=== PATIENT | male | born 1955 | race Two or more races ===

== ENCOUNTER 2017-08-23 12:41 | Inpatient (IN) | payer OTHER ==
[~2017-08-23] VITALS: Ht 165.1 cm; Wt 74.8 kg
--- NOTE | 2017-08-23 12:45 | NUR ---
PRESENTS TO ER C/O LEFT FACIAL DROOP, SLURRED SPEACH SINCE YESTERDAY AT 0830 AM. PATIENT IS A/OX 4. BREATHING EVEN AND UNLABORED. NO OTHER NEURO DEFICITS. NAD, VITALS STABLE. SAFETY AND COMFORT MEASURES IN PLACE. AWAITING MD ORDERS.
[2017-08-23] MEDS ORDERED: [UNRECOGNIZED DRUG - REMARK] (12:46)
[2017-08-23 12:57] LABS: BASOPHILS % (AUTO) 0.5 % (0.0-2.0); EOSINOPHILS # (AUTO) 0.1 /CMM (0.0-0.7); EOSINOPHILS % (AUTO) 1.4 % (0.0-6.0); HEMATOCRIT 47 % (39-51); HEMOGLOBIN 16.7 g/dL (13.5-17.5); LYMPHOCYTES # (AUTO) 1.4 /CMM (0.8-4.8); LYMPHOCYTES % (AUTO) 24.6 % (20.0-44.0); MEAN CORPUSCULAR HEMOGLOBIN 32 PG (26.0-33.0); MEAN CORPUSCULAR HGB CONC 36 g/dl (31.0-36.0); MEAN CORPUSCULAR VOLUME 89 fL (80-96); MONOCYTES # (AUTO) 0.3 /CMM (0.1-1.30); NEUTROPHILS # (AUTO) 3.9 /CMM (1.8-8.9); NEUTROPHILS % (AUTO) 68.5 % (43.0-81.0); PLATELET COUNT (AUTO) 216 /CMM (150-450); RDW COEFFICIENT OF VARIATION 12.3 (11.5-15.0); WHITE BLOOD COUNT (AUTO) 5.8 K/uL (4.3-11.0)
--- NOTE | 2017-08-23 12:57 | NUR ---
NEW IV STARTED ON RAC, 20G. BLOOD DRAWN AND SENT TO LAB.
--- NOTE | 2017-08-23 13:00 | NUR ---
PATIENT TAKEN TO CT VIA STRETCHER.
[2017-08-23 13:07] LABS: CARBON DIOXIDE 24 mmol/L (21-32); CHLORIDE 104 mmol/L (98-107); CREATININE 0.8 mg/dL (0.6-1.3); GLUCOSE 108 mg/dL (74-106); POTASSIUM 3.9 mmol/L (3.5-5.1); SODIUM SERUM 138 mmol/L (136-145); UREA NITROGEN, BLOOD 19 mg/dL (7-18)
--- NOTE | 2017-08-23 13:10 | NUR ---
PATIENT RETURNED FROM CT IN STABLE CONDITION.
[2017-08-23 13:11] LABS: INR 0.91 (0.85-1.15)
--- NOTE | 2017-08-23 13:11 | NUR ---
CALLED NURSING BOILERMAKER MECHANIC REQUESTING A BED.
[2017-08-23 13:13] LABS: ALANINE AMINOTRANSFERASE 26 U/L (12-78); ALBUMIN 4.2 g/dL (3.4-5.0); ALKALINE PHOSPHATASE 65 U/L (46-116); ASPARTATE AMINOTRANSFERASE 16 U/L (15-37); BILIRUBIN,DIRECT 0.2 mg/dL (0.0-0.2); BILIRUBIN,TOTAL 0.6 mg/dL (0.2-1.0); TOTAL PROTEIN, SERUM 7.8 g/dL (6.4-8.2)
[2017-08-23 13:15] LABS: TROPONIN I < 0.017 ng/mL (0.00-0.056)
--- NOTE | 2017-08-23 13:28 | NUR ---
CALLED [employer] RESIDENT SERVICE COORDINATOR WAS PAGED.
[2017-08-23 13:33] LABS: CHOLESTEROL 172 mg/dL (<200); HDL CHOLESTEROL 34 mg/dL (40-60); LDL 121 mg/dL (0-99); TRIGLYCERIDES 114 mg/dL (30-150)
[2017-08-23] MEDS ORDERED: ASPIRIN 325 MG TABLET PO ONE (14:00)
[2017-08-23] MEDS ORDERED: METO25TA3 PO (14:04)
[2017-08-23] MEDS ORDERED: LOSA50TA3 PO (14:04)
[2017-08-23] MEDS ORDERED: ASPI-1169 PO (14:04)
[2017-08-23] MEDS ORDERED: ATOR40TA PO (14:04)
[2017-08-23] MEDS ORDERED: ALLO100T PO (14:04)
[2017-08-23] MEDS ORDERED: ASPIRIN 325 MG TABLET ONE (14:06)
--- NOTE | 2017-08-23 14:16 | NUR ---
REPORT GIVEN TO PABLO BRIONES FOR MILTON UPON ADMISSION.
--- NOTE | 2017-08-23 14:49 | NUR ---
PATIENT TRANSPORTED TO [facility] VIA ACLS PROTOCOL. RNPABLO TO PROVIDE IMLTON.
[2017-08-23] MEDS ORDERED: ENOXAPARIN SODIUM 40 MG/0.4 ML DISP.SYRIN SQ SCH (15:00)
[2017-08-23] MEDS ORDERED: LOSARTAN POTASSIUM 50 MG TABLET PO SCH (15:00)
[2017-08-23] MEDS ORDERED: METOPROLOL SUCCINATE 25 MG TAB.SR.24H PO SCH (15:00)
--- NOTE | 2017-08-23 15:17 | NUR ---
TEXTED DR. PINEDA FOR MRI APPROVAL.
--- NOTE | 2017-08-23 15:35 | NUR ---
ENDODONTICS DENTIST NOTES RECEIVED PT FROM ER. V/S SIGNS CHECKED.
[2017-08-23] MEDS: BLOOD SUGAR DIAGNOSTIC 1 EACH STRIP IN SCH ×3 (15:46→21:34)
[2017-08-23] MEDS: ATORVASTATIN 40 MG TABLET PO SCH (15:59)
[2017-08-23 16:03] VITALS: BP 126/78
[2017-08-23] MEDS ORDERED: BLOOD SUGAR DIAGNOSTIC 1 EACH STRIP IN SCH (18:00)
--- NOTE | 2017-08-23 18:26 | NUR ---
SEPTIC TANK SETTER NOTES NO ACUTE CHANGES NOTED DURING THE SHIFT. DUE MEDS GIVEN. HEAD OF BED ELEVATED.SIDE RAILS UP. CALL LIGHT PLACED WITHIN REACH. WILL ENDORSE TO THE PM NURSE FOR MILTON.
--- NOTE | 2017-08-23 19:25 | NUR ---
TELE/RN NOTES RECEIVED PT. SITTING UP IN BED. PT. IS AWAKE, ALERT AND ORIENTED X4. BREATHING EVEN AND UNLABORED ON ROOM AIR. NO SOB, RESPIRATORY DISTRESS OR COMPLAINTS OF PAIN NOTED AT THIS TIME. PT. WITH EXTERNAL RISK MANAGEMENT SPECIALIST PRESENT AND INTACT. CURRENT RHYTHM = SINUS RHYTHM HR 85. PT. WITH RIGHT AC 20 GAUGE IV SALINE LOCK PRESENT AND INTACT. NEURO CHECK PERFORMED. WILL CONTINUE TO PERFORM FREQUENT NEUROCHECKS ORDERED. PT. WITH FAMILY MEMBERS PRESENT AT BEDSIDE. BED LOCKED AND IN LOWEST POSITION, SIDE RAILS UP X2, CALL LIGHT WITHIN REACH, WILL CONTINUE TO MONITOR.
[2017-08-23 20:00] VITALS: BP 108/75
--- NOTE | 2017-08-23 20:05 | NUR ---
TELE/RN NOTES CHARGE NURSE OSIEL RECEIVED CALL FROM DR. GOLDSMITH PT. MRI RESULTED WITH ACUTE STROKE. CALLED AND NOTIFIED [facility] SALES HOST DR. JONES PT. MRI RESULTED. MRI RESULTS READ: SMALL ACUTE INFARCT IN THE POSTERIOR LIMB OF THE RIGHT INTERNAL CAPSULE. 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 SMALL CHRONIC INFARCTS ARE SEEN IN THE RIGHT CEREBELLUM. PT. RECEIVED ASPIRIN 325 MG, LOVENOX 40MG AND LIPITOR 40MG IN THE ER. PER DR. JONES OK. NO NEW ORDERS AT THIS TIME. WILL CONTINUE FREQUENT NEURO CHECKS. WILL CONTINUE TO MONITOR.
[2017-08-24] VITALS: BP 108/73
[2017-08-24 04:00] VITALS: BP 105/65
--- NOTE | 2017-08-24 06:05 | NUR ---
TELE/RN NOTES PT. IS LYING IN BED RESTING. BREATHING EVEN AND UNLABORED ON ROOM AIR. NO SOB, RESPIRATORY DISTRESS OR COMPLAINTS OF PAIN NOTED AT THIS TIME. PT. WITH EXTERNAL MANAGER LOGISTIC PRESENT AND INTACT. CURRENT RHYTHM = SINUS RHYTHM HR 84. PT. WITH RIGHT AC 20 GAUGE IV SALINE LOCK PRESENT AND INTACT. FREQUENT NEURO CHECKS PERFORMED. ALL PT. NEEDS MET. BED LOCKED AND IN LOWEST POSITION, SIDE RAILS UP X2, CALL LIGHT WITHIN REACH, WILL ENDORSE TO DAYSHIFT NURSE FOR CONTINUITY OF CARE.
[2017-08-24 06:15] VITALS: BP 105/65
[2017-08-24] MEDS: BLOOD SUGAR DIAGNOSTIC 1 EACH STRIP IN SCH ×2 (06:48→11:58)
[2017-08-24 07:05] LABS: CALCIUM, SERUM 8.8 mg/dL (8.5-10.1); CREATININE 0.8 mg/dL (0.6-1.3); POTASSIUM 4.3 mmol/L (3.5-5.1)
--- NOTE | 2017-08-24 07:05 | NUR ---
RN INITIAL NOTE PATIENT RECEIVED IN BED SLEEPING. EASILY AROUSED. NO S/S OF PAIN OR DISCOMFORT. SINUS TACH ON TELE MONITOR WITH PVC'S. RESPIRATIONS ARE EVEN AND UNLABORED. SATING WELL ON ROOM AIR. SKIN IS WARM AND DRY TO TOUCH. IV SITE FLUSHED, PATENT. SAFETY PRECAUTIONS IMPLEMENTED: BED IN LOCKED, LOW POSITION WITH TWO SIDE RAILS UP. CALL LIGHT AND BELONGINGS WITHIN EASY REACH. WILL CONTINUE TO MONITOR.
[2017-08-24 07:13] LABS: BASOPHILS % (AUTO) 0.5 % (0.0-2.0); EOSINOPHILS # (AUTO) 0.2 /CMM (0.0-0.7); EOSINOPHILS % (AUTO) 2.6 % (0.0-6.0); HEMATOCRIT 45 % (39-51); HEMOGLOBIN 15.4 g/dL (13.5-17.5); LYMPHOCYTES # (AUTO) 1.9 /CMM (0.8-4.8); LYMPHOCYTES % (AUTO) 29.2 % (20.0-44.0); MEAN CORPUSCULAR HEMOGLOBIN 31 PG (26.0-33.0); MEAN CORPUSCULAR HGB CONC 34 g/dl (31.0-36.0); MEAN CORPUSCULAR VOLUME 90 fL (80-96); MONOCYTES # (AUTO) 0.4 /CMM (0.1-1.30); MONOCYTES % (AUTO) 6.4 % (2.0-12.0); NEUTROPHILS # (AUTO) 3.9 /CMM (1.8-8.9); NEUTROPHILS % (AUTO) 61.3 % (43.0-81.0); PLATELET COUNT (AUTO) 188 /CMM (150-450); RDW COEFFICIENT OF VARIATION 13.3 (11.5-15.0); RED BLOOD CELL COUNT(AUTO) 4.99 MIL/uL (4.5-6.0); WHITE BLOOD COUNT (AUTO) 6.4 K/uL (4.3-11.0)
[2017-08-24 07:15] LABS: INR 0.93 (0.87-1.13)
[2017-08-24 08:00] VITALS: BP 122/79
[2017-08-24] MEDS: ATORVASTATIN 40 MG TABLET PO SCH (08:09)
[2017-08-24] MEDS ORDERED: ASPIRIN EC 325 MG TABLET.DR PO SCH (09:00)
--- NOTE | 2017-08-24 11:53 | NUR ---
Electrical Estimator Consult was requested by Dr. Walden regarding a stroke. Pt is a 62 year old Japanese male who was admitted to [facility] for evaluation of dysphagia and facial asymmetry. SW met with pt. at his bedside. Pts friend and daughter were at bedside. Patient is orientedx4. Pt currently resides at his [address] [place], [place] [id number]. The pt.s emergency contact is his daughter Odalis ([phone]). Pt reports no use of drugs and alcohol. Pt reports that he smokes 10 cigarettes a day but is going to quit now due to stroke. Pt denies any suicidal or homicidal ideation. Patient denies any visual or auditory hallucinations. SW offered resources and referrals and pt. and his family declined. Pt reported that he was well and did not need any resources. SW provided emotional support and evaluated pt.s support system which includes his , his children, and friends. DRAKE spoke with ANSELMO Pizarro in regards to pt. declining resources and pt.s disposition. Plan: Pt will be going back to his home ([address] [place] [id number]) with his family. Addendum: 08/24/17 at 1746 by DEISY JUAN DRAKE provided family with the Stroke Help [id number] ([phone]) if the pt. needed additional support.
[2017-08-24 12:00] VITALS: BP 124/81
[2017-08-24] MEDS ORDERED: CLOPIDOGREL BISULFATE 75 MG TABLET PO ONE (12:30)
--- NOTE | 2017-08-24 15:42 | NUR ---
RN CLOSING NOTE PATIENT DISCHARGED HOME. LEFT WITH DAUGHTER. IV SITE AND ID BAND REMOVED. PAPERWORK COMPLETED AND SIGNED.
[2017-08-25] MEDS ORDERED: CLOPIDOGREL BISULFATE 75 MG TABLET PO SCH (09:00)
== END 2017-08-24 15:48 | disposition home or self-care (01) | DRG 45 ==
LOC: ER 12:43 → TELE1 13:51
PROVIDERS: ADMIT Internal Medicine; ATTEND Internal Medicine
DX: I63.9 Cerebral infarction, unspecified (principal); R13.10 Dysphagia, unspecified; I10 Essential (primary) hypertension; E78.5 Hyperlipidemia, unspecified; I25.10 Atherosclerotic heart disease of native coronary artery without angina pectoris; R29.810 Facial weakness; I69.322 Dysarthria following cerebral infarction
CPT/HCPCS: 36415; 70450-TC; 70551-TC; 71045-TC; 80048-TC; 80061-TC; 80076-TC; 82962-TC; 84443-TC; 84484-TC; 85025-TC; 85652-TC; 85730-TC; 86592; 87081-TC; 92521; 92611-TC; 93307-TC; 93880-TC; A4606; J1650; Z7610